=== PATIENT | female | born 1970 | race Caucasian/White ===

== ENCOUNTER 2019-04-24 00:28 | Inpatient (IN) | payer OTHER ==
[~2019-04-24] VITALS: Ht 162.6 cm; Wt 70.1 kg
[2019-04-24 01:05] LABS: BASO # 0.1 10^3/uL (0.0-0.2); BASO % 0.3 % (0.0-1.0); EOS # 0.1 10^3/uL (0.0-0.50); EOS % 0.3 % (0.0-3.0); HEMATOCRIT 40.6 % (36.0-47.0); HEMOGLOBIN 13.4 g/dl (12.0-15.5); LYMPH # 2.5 10^3/uL (1.5-4.5); LYMPH % 14.5 % (24.0-44.0); MEAN CORPUSCULAR HEMOGLOBIN 31.1 pg (27.0-33.0); MEAN CORPUSCULAR VOLUME 94.2 fl (80.0-96.0); MONO # 1.2 10^3/uL (0.0-0.8); NEUTROPHILS # 13.5 10^3/uL (1.8-7.7); NEUTROPHILS % 77.5 % (36.0-66.0); PLATELET COUNT, AUTOMATED 454 10^3/uL (150-450); RED BLOOD COUNT 4.31 10^6/uL (4.00-5.40); WHITE BLOOD COUNT 17.4 10^3/uL (4.0-10.0)
[2019-04-24 01:27] LABS: BLOOD UREA NITROGEN 8 MG/DL (7-18); CALCIUM LEVEL 9.5 MG/DL (8.5-10.1); CARBON DIOXIDE LEVEL 28 MEQ/L (21-32); CHLORIDE LEVEL 103 MEQ/L (98-107); CREATININE FOR GFR 0.71 MG/DL (0.55-1.30); GLOMERULAR FILTRATION RATE > 60.0 (>58); GLUCOSE, FASTING 101 MG/DL (70-100); POTASSIUM SERUM 3.9 MEQ/L (3.5-5.1); SODIUM LEVEL 139 MEQ/L (136-145)
[2019-04-24] MEDS ORDERED: ACETAMINOPHEN 325 MG TAB PO ONE (01:45)
[2019-04-24] MEDS ORDERED: ISOVUE-370 76% 100ML VIAL (Q9967) As Ordered ONE (02:13)
[2019-04-24] MEDS ORDERED: PIPERACILLIN/TAZOBACTAM SOD 3.375 GM in D5W MINI-BAG PLUS 50 ML IV ONE (02:15)
[2019-04-24] MEDS ORDERED: NS 1,000 ML IV ONE (02:15)
--- NOTE | 2019-04-24 04:42 | REPVR ---
EXAM: CT Abdomen and Pelvis With Contrast EXAM DATE/TIME: 04/24/2019 2:05 AM CLINICAL HISTORY: 48 years old, female; Abdominal pain; Localized; Right lower quadrant (rlq); Additional info: Eval post appy infection TECHNIQUE: Imaging protocol: Axial computed tomography images of the abdomen and pelvis with intravenous contrast. Coronal and sagittal reformatted images were created and reviewed. Radiation optimization: All CT scans at this facility use at least one of these dose optimization techniques: automated exposure control; mA and/or kV adjustment per patient size (includes targeted exams where dose is matched to clinical indication); or iterative reconstruction. Contrast material: ISO;Contrast volume: 100 ml;Contrast route: AC; COMPARISON: CT ABD PELVIS WITH CONTRAST 10/28/2015 3:51 PM FINDINGS: LUNG BASES: Mild dependent atelectasis. VASCULAR: Major vasculature is within normal limits. PERITONEAL : No free air. Trace amount of free fluid within the pelvis. This could be physiologic. GI: No hiatal hernia. The stomach contains some fluid and gas. The stomach is not sufficiently distended to evaluate wall thickening or exclude fold thickening. Mild proximal duodenal dilation with fluid. No perigastric or derrek-duodenal inflammatory stranding. Nonspecific fluid and gas-filled loops of small bowel. No asymmetric small bowel dilation to suggest obstruction. Small nonspecific mesenteric lymph nodes. Scattered fecal material and gas within portions of the colon and rectum. The cecum is distended up to 7 cm in diameter. This could be correlated for mild constipation. There is slight wall thickening of the cecum at the ileocecal junction with some nodular appearing soft tissue density extending into the cecal apex (image 34, series 202), possibly postsurgical or related to residual inflammation post appendicitis. Followup colonoscopy or barium enema is advised to exclude any possibility of a cecal lesion. There is minimal soft tissue stranding between the terminal ileum and cecum which may represent residual inflammation. The terminal ileum is not sufficiently distended to evaluate wall thickening. The appendix is not visualized, consistent with removal. No abscess is seen in the right lower quadrant. HEPATOBILIARY, PANCREAS, SPLEEN: Sagittal hepatic length is 17.7 cm. No calcified gallstones or biliary dilation. No pancreatic inflammation. Spleen not enlarged. ADRENALS, KIDNEYS, BLADDER, RETROPERITONEAL: Adrenals within normal limits. No hydronephrosis. Symmetric renal enhancement. No perinephric stranding or fluid. No perivesical stranding. No bladder wall thickening. PELVIC: Anteverted slightly heterogeneous uterus and cervix may be due to physiologic changes. There may be some follicular changes within the ovaries. MUSCULOSKELETAL: There is skin thickening, soft tissue swelling and subcutaneous reticulations involving the right lower quadrant anterior abdominal wall over a diameter of approximately 17 cm. This could be secondary to post surgical change with edema, however cellulitis cannot be excluded. Clinical correlation with time frame of surgery. There is also ill-defined subcutaneous fluid in the abdominal wall measuring 4.8 x 2.7 x 2.9 cm which could be correlated for possibility of phlegmon/developing abscess, versus postsurgical fluid. IMPRESSION: Clinical correlation for possibility of right lower quadrant anterior abdominal wall cellulitis and/or phlegmon as discussed above. Nonspecific gastrointestinal findings and recommendations as discussed above in detail. Trace amount of free fluid within the pelvis. This could be physiologic. Other incidental findings discussed above. Electronically signed by: Pj Soto On 04/24/2019 04:42:52 AM
[2019-04-24] MEDS ORDERED: MAGN400T2 PO (04:59)
[2019-04-24] MEDS ORDERED: MOME50SP2 (04:59)
[2019-04-24] MEDS ORDERED: REST0.05 OU (04:59)
[2019-04-24] MEDS ORDERED: ACETAMINOPHEN TAB 650MG DOSE (2X325MG) PO PRN (05:30)
--- NOTE | 2019-04-24 05:47 | HPEPDOC ---
[facility] Medical History & Physical Date of Admission Apr 24, 2019 Date of Service: Apr 24, 2019 Primary Care Physician: A Other Provider PCP Lorenzo Mohamud Attending Physician: JOANNA BARNES MD History and Physical TIME OF SERVICE 620AM CHIEF COMPLAINT: Abdominal pain HISTORY OF PRESENT ILLNESS: While on vacation in [facility] 15 days ago Ms. Whitaker, a 48-year-old female, developed acute appendicitis and had an open appendectomy. She was given penicillin for 5 days and completed the course of antibiotics, but 3-4 days ago she developed lower abdominal pain associated with redness and swelling, along with subjective fevers and chills. She had discharge from the incision site which improved after completing the antibiotics. REVIEW OF SYSTEMS: 12 point review of systems negative except as listed in HPI PAST MEDICAL/SURGICAL HISTORY: None SOCIAL HISTORY: Negative tobacco. Negative alcohol. Negative recreational drug use Has a daughter who is in college in [place] FAMILY HISTORY: Father has diabetes, hypertension, Cancer ALLERGIES: Please see below. HOME MEDICATIONS: Please see below. PHYSICAL EXAMINATION: VITAL SIGNS: Temperature 99.5, pulse 85, respiratory rate 18, blood pressure 134/65, pulse oximetry 96% on room air GENERAL APPEARANCE: Well-nourished, well-developed, appears stated age, does not appear toxic HEENT: Normocephalic, atraumatic, mucous members moist and pink CARDIOVASCULAR: Regular rate and rhythm. No murmurs, rubs or gallops. Strip is warm and well-perfused LUNGS: Not using accessory muscles. Lungs clear to auscultation bilaterally on room air ABDOMEN: There is an incision at the lower abdomen that is covered in dressings, when the dressings are removed Steri-Strips and a scant mild amount of serosanguineous discharge are visible. There is redness and swelling immediately surrounding the incision site , extending to the left lower abdominal quadrant MUSCULOSKELETAL: Range of motion intact 4 extremities EXTREMITIES: No bilateral lower extremity edema NEUROLOGICAL: Cranial nerves II-12 grossly intact. Speech not dysarthric PSYCHIATRIC: Alert and Oriented to person, place and time, able to understand and follow commands LABORATORY DATA: CBC is markable for platelet count of 454. Chemistries markable for glucose of 101 IMAGING: CT of the abdomen shows "right lower quadrant anterior abdominal wall cellulitis and/or phlegmon" MICROBIOLOGY: Please see below. ASSESSMENT: Ms. Whitaker is a 48 Female with no prior past medical history who will be admitted for management of lower abdominal cellulitis. . PLAN: 1. Lower abdominal wall cellulitis. Status post open appendectomy. Today's postop day #15 She completed a 5 day course of treatment with penicillin She is afebrile and does not have leukocytosis Plan: Admit to general medical floor, follow-up blood cultures, start IV vancomycin antibiotic day #1 and switch to PO clinidamycin when ready for discharge, day time team can determine if General surgery consult is warranted DVT px w SCDs Dispo: pending clinical course Laboratory Data Labs 24H Laboratory Tests 2 04/24/19 00:53: Immature Granulocyte % (Auto) 0.4, White Blood Count 17.4H, Red Blood Count 4.31, Hemoglobin 13.4, Hematocrit 40.6, Mean Corpuscular Volume 94.2, Mean Corpuscular Hemoglobin 31.1, Mean Corpuscular Hemoglobin Concent 33.0, Red Cell Distribution Width 11.4L, Platelet Count 454H, Neutrophils (%) (Auto) 77.5H, Lymphocytes (%) (Auto) 14.5L, Monocytes (%) (Auto) 7.0H, Eosinophils (%) (Auto) 0.3, Basophils (%) (Auto) 0.3, Neutrophils # (Auto) 13.5H, Lymphocytes # (Auto) 2.5, Monocytes # (Auto) 1.2H, Eosinophils # (Auto) 0.1, Basophils # (Auto) 0.1, Nucleated Red Blood Cells % (auto) 0.0, Anion Gap 8, Glomerular Filtration Rate > 60.0, Lactic Acid Level 1.2, Blood Urea Nitrogen 8, Creatinine 0.71, Sodium Level 139, Potassium Level 3.9, Chloride Level 103, Carbon Dioxide Level 28, Ca lcium Level 9.5 CBC/BMP Laboratory Tests 04/24/19 00:53 Red Blood Count 4.31, Mean Corpuscular Volume 94.2, Mean Corpuscular Hemoglobin 31.1, Mean Corpuscular Hemoglobin Concent 33.0, Red Cell Distribution Width 11.4 L, Neutrophils (%) (Auto) 77.5 H, Lymphocytes (%) (Auto) 14.5 L, Monocytes (%) (Auto) 7.0 H, Eosinophils (%) (Auto) 0.3, Basophils (%) (Auto) 0.3, Neutrophils # (Auto) 13.5 H, Lymphocytes # (Auto) 2.5, Monocytes # (Auto) 1.2 H, Eosinophils # (Auto) 0.1, Basophils # (Auto) 0.1, Calcium Level 9.5 Microbiology Microbiology 04/24/19 Blood Culture, Received Pending Home Medications Scheduled Cyclosporine (Restasis) 0.05% [place], 1 DROP OU BID Magnesium Oxide (Magnesium Oxide) 400 Mg Tablet, 400 MG PO DAILY Mometasone Furoate (Mometasone Furoate) 17 Gm [place].pump, 1 SPRAY NA QHS Allergies Coded Allergies: No Known Allergies (Verified , 03/24/03) A-FIB/CHADSVASC A-FIB History Current/History of A-Fib/PAF?: No Current PO Anticoag Therapy: No JOANNA BARNES MD Apr 24, 2019 05:47
[2019-04-24] MEDS ORDERED: VANCOMYCIN HCL 1,000 MG, VIAL MATE ADAPTER 1 EACH in D5W 250 ML IV ONE (06:00)
--- NOTE | 2019-04-24 06:51 | PHACANCOPD ---
PHARMACY VANCOMYCIN DOSING Pt Demographics Demographics Patient Age:48 , Weight:70.450 , Gender: female Adjusted Body Weight Date: 04/24/19, Adjusted Body Weight: [70.5] Kg(ACTUAL WT) Vancomycin Vancomycin indication: ABDOMINAL WALL CELLULITIS Vancomycin Target Ranges: 15-20 mcg/ml Vancomycin Load Y/N: No Load Dose Date Time Vancomycin Load Dose: Date: Time: Vancomycin Dose Date: 04/24/19. Current Vancomycin Dose: [1 GM Q8H] Intermittent Dosing?: No Labs Labs Laboratory Tests 04/24/19 00:53 Red Blood Count 4.31, Mean Corpuscular Volume 94.2, Mean Corpuscular Hemoglobin 31.1, Mean Corpuscular Hemoglobin Concent 33.0, Red Cell Distribution Width 11.4 L, Neutrophils (%) (Auto) 77.5 H, Lymphocytes (%) (Auto) 14.5 L, Monocytes (%) (Auto) 7.0 H, Eosinophils (%) (Auto) 0.3, Basophils (%) (Auto) 0.3, Neutrophils # (Auto) 13.5 H, Lymphocytes # (Auto) 2.5, Monocytes # (Auto) 1.2 H, Eosinophils # (Auto) 0.1, Basophils # (Auto) 0.1, Calcium Level 9.5 Micro Microbiology 04/24/19 Blood Culture, Received Pending Creatinine Clearance Date:04/24/19. Creatinine Clearance: [109].CALCULATED Assessment and Plan Maintaining Current Dose?: Yes Reason for dose change: No Dose Change Pharmacist Note Pharmacist Note Date: 04/24/19. Pharmacist note:48 YOF,ADMITTED W/ABDOMINAL WALL CELL ULITIS,SCR=0.71,WMNV=427(calculated),NKDA.Vancomycin 1 GM in ED @ 0600,then will begin regimen of 1 gram IV Q8H @1000. First trough is scheduled for 04/25@0900.Will continue to follow labs and will adjust dose as needed LYNETTE ZUÑIGA [facility] Apr 24, 2019 06:51
[2019-04-24 08:40] VITALS: BP 134/69
[2019-04-24] MEDS: VANCOMYCIN HCL 1,000 MG, VIAL MATE ADAPTER 1 EACH in D5W 250 ML IV SCH ×2 (10:28→17:31)
[2019-04-24] MEDS: ENOXAPARIN 40 MG/0.4 ML SYRINGE (J1650) SC SCH (10:28)
[2019-04-24 16:00] VITALS: BP 114/59
[2019-04-25 02:00] VITALS: BP 107/64
[2019-04-25] MEDS: VANCOMYCIN HCL 1,000 MG, VIAL MATE ADAPTER 1 EACH in D5W 250 ML IV SCH ×2 (02:27→09:25)
[2019-04-25 08:00] VITALS: BP 98/54
[2019-04-25] MEDS ORDERED: AUGMENTIN 875 MG TAB PO SCH (09:00)
[2019-04-25] MEDS: ENOXAPARIN 40 MG/0.4 ML SYRINGE (J1650) SC SCH (09:25)
[2019-04-25 09:30] LABS: HEMATOCRIT 37.8 % (36.0-47.0); HEMOGLOBIN 12.4 g/dl (12.0-15.5); MEAN CORPUSCULAR HEMOGLOBIN 30.8 pg (27.0-33.0); MEAN CORPUSCULAR HGB CONC 32.8 g/dl (32.0-36.5); PLATELET COUNT, AUTOMATED 431 10^3/uL (150-450); RED BLOOD COUNT 4.02 10^6/uL (4.00-5.40); WHITE BLOOD COUNT 8.8 10^3/uL (4.0-10.0)
[2019-04-25 09:59] LABS: BLOOD UREA NITROGEN 9 MG/DL (7-18); CALCIUM LEVEL 8.8 MG/DL (8.5-10.1); CARBON DIOXIDE LEVEL 29 MEQ/L (21-32); CHLORIDE LEVEL 104 MEQ/L (98-107); CREATININE FOR GFR 0.79 MG/DL (0.55-1.30); GLOMERULAR FILTRATION RATE > 60.0 (>58); GLUCOSE, FASTING 113 MG/DL (70-100); POTASSIUM SERUM 3.5 MEQ/L (3.5-5.1); SODIUM LEVEL 140 MEQ/L (136-145); VANCOMYCIN LEVEL TROUGH 14.9 UG/ML (10.0-20.0)
[2019-04-25] MEDS ORDERED: LIDOCAINE 1% SDV 5 ML VIAL As Ordered ONE (12:16)
[2019-04-25] MEDS ORDERED: AMOX875T2 PO (12:44)
[2019-04-25] MEDS ORDERED: [UNRECOGNIZED DRUG - CODE] XX (12:46)
[2019-04-25] MEDS ORDERED: [UNRECOGNIZED DRUG - CODE] TP (12:46)
[2019-04-25] MEDS ORDERED: IBUP-1022 PO (12:48)
--- NOTE | 2019-04-25 13:30 | IPN ---
DATE OF SERVICE: 04/24/2019 The patient is seen and examined at the bedside. She complains of right lower quadrant tenderness with some induration. She has had no fevers overnight. No nausea, vomiting. She was hypothermic at 96 and continued on IV vancomycin for now. Laboratory data elevated WBC at 17,000. Lactic acid was normal at 1.2. Blood culture is still pending. Imaging study included CT of abdomen and pelvis yesterday which showed anterior abdominal wall cellulitis and/or phlegmon and trace free fluid which could be physiologic, status post appendectomy. Vital Signs: Temperature 98.1, pulse 87, respiratory rate 18, blood pressure 114/59, 99% on room air. Generally, the patient is awake, alert, and oriented times three, answering questions appropriately. She is in no distress. Anicteric sclerae. Lungs are clear to auscultation. No wheezing, rales or rhonchi. HEENT: Pupils equal round and reactive. No cervical lymphadenopathy or thyromegaly. Moist mucous membranes. Abdomen is soft, slightly tender with induration in the right lower quadrant, well bandaged. There is no purulent drainage or serous drainage at the site. Some erythema surrounding the incision. No rebound or guarding. Extremities have no cyanosis, clubbing or any pitting edema. Laboratory data has been reviewed. Microbiology has been reviewed and imaging studies. ASSESSMENT AND PLAN: This is a 48-year-old female who was on vacation in [facility] when she suffered from acute appendicitis requiring appendectomy. She completed a full course of penicillin and was discharged home and returned to [place] and was doing well. After a few days of being home, she noted increasing redness, swelling and pain at the right lower quadrant and currently is admitted for abdominal wall cellulitis, possible phlegmon formation, but no purulence. White count is elevated. She is placed on intravenous vancomycin. Current issues are as follows: 1. Right lower quadrant abdominal wall cellulitis with recent appendectomy in [facility]. She is postoperative day #16, completed penicillin five days in [facility] and was doing well in [place] and now had increasing pain, redness and induration. 2. Deep vein thrombosis (DVT) prophylaxis with compression stockings.
--- NOTE | 2019-04-25 18:13 | CR ---
DATE OF CONSULTATION: 04/25/2019 REASON FOR CONSULTATION: Right lower quadrant abscess. HISTORY OF PRESENT ILLNESS: The patient is a 48-year-old female who was recently on vacation in [facility] and she developed appendicitis. She had an open appendectomy done about 15 days ago. She was given penicillin for 5 days post surgery and [place] After returning to the she drove her daughter back to college in [place], flew back 2 days ago and continued to have some generalized weakness, loss of appetite and some pain in her right lower side so she came into the emergency room yesterday for evaluation. In the ER she had elevated white count, some erythema and pain of the skin over her previous incision site. CT scan shows possible phlegmon in the right lower quadrant. No signs of any intra-abdominal disease. She has been on IV antibiotics for the last 1/2 day. Her white count has already returned back to normal and she is feeling much improved. However, she is still having significant swelling and pain in the right lower side, therefore I was asked to evaluate. She denies any fevers or chills. No nausea or vomiting. No problems with bowel movements. No other prior surgery or trauma to the abdomen. PAST SURGICAL HISTORY: Appendectomy. PAST MEDICAL HISTORY: None. ALLERGIES: None. HOME MEDICATIONS: Please see medication reconciliation. REVIEW OF SYSTEMS: Pertinent positives and negatives as stated in the HPI. SOCIAL HISTORY: Denies drug, alcohol, or tobacco abuse. FAMILY HISTORY: Noncontributory. PHYSICAL EXAMINATION: GENERAL: Alert and oriented times three. No acute distress. VITAL SIGNS: Temperature 97.1, pulse 82, respirations 20, blood pressure 98/54, pulse oximetry 100% room air. HEENT: Pupils equally round and reactive to light and accommodation. HEART: S1, S2, regular rate and rhythm. LUNGS: Clear to auscultation bilaterally. ABDOMEN: Soft, tender to palpation right lower quadrant. The previous incision is all intact. No signs of any drainage from it, however deep to the incision extending medially there is extensive subcutaneous swelling, erythema and induration. LABORATORY DATA: White count was 17.4 on admission down to 8.8, hemoglobin 12.4, platelets 431, potassium 3.5. IMAGING STUDIES: CT abdomen and pelvis shows clinical correlation for possibility of right lower quadrant anterior abdominal wall cellulitis and or phlegmon. There is an ill-defined subcutaneous fluid in the abdominal wall measuring 4.8 x 2.7 x 2.9 cm. Could be correlated possibility of phlegmon versus developing abscess. ASSESSMENT: The patient is a 48-year-old female just over 2 weeks postoperative status post open append[place] outside [place] presenting with what appears to be a right lower quadrant skin abscess. This may have been secondary to an infected seroma or infected hematoma. Recommendation at this time is to proceed with a bedside I and D. Risks and benefits of proceeding not limited to but including bleeding, infection, damage to surrounding structures, need for further surgery were discussed in detail with the patient. Informed consent was obtained and the procedure was completed at the bedside. Now that that is completed she is stable to be discharged home. I have already discussed this with Dr. Elizalde and she is planning to discharge her home this afternoon to continue another week course of by mouth antibiotics. She has my number and will call the office with any questions.
--- NOTE | 2019-04-26 20:15 | RO ---
DATE OF PROCEDURE: 04/25/2019 PREOPERATIVE DIAGNOSIS: Right lower quadrant abdominal wall abscess. POSTOPERATIVE DIAGNOSIS: Right lower quadrant abdominal wall abscess. PROCEDURE: Bedside incision and drainage of right lower quadrant abscess. SURGEON: Dr. Ras Obando SNOW FENCE ERECTOR: None. ANESTHESIA: 4 mL of 1% lidocaine local. COMPLICATIONS: None. INDICATIONS FOR PROCEDURE: Patient is a 48-year-old female, status [place], now presenting with an abdominal wall abscess in the right lower quadrant. Recommendation is to proceed with an incision and drainage (I and D). Risks and benefits of the procedure not limited to but including bleeding, infection, damage to surrounding structures and need for further surgery were discussed in detail with the patient. Informed consent was obtained and procedure was planned. DESCRIPTION OF PROCEDURE: The patient's right lower quadrant was sterilely prepped and draped with some Betadine. Next, 4 mL of 1% lidocaine were injected in the skin and subcutaneous tissue in the medial half of her appendectomy incision. Once that was completed, 11 blade scalpel was used to open up about a centimeter and a half of her previous incision on the medial side. Once that was opened up, I was able to probe it with a cotton-tipped applicator and enter an abscess cavity with some purulent drainage. I was able to expel most of the purulent fluid and then covered the wound with a 4x4 and tape, thus ending procedure. The patient will be discharged home today on oral antibiotics and will call my office with any questions.
--- NOTE | 2019-04-27 21:46 | DSES ---
DATE OF ADMISSION: 04/25/2019 DATE OF DISCHARGE: 04/25/2019 CONSULTATION: General surgery, Dr. Obando PROCEDURE: Incision and drainage of right lower abdominal wall abscess, status post appendectomy in [facility]. DISCHARGE DIAGNOSIS: Right lower quadrant abdominal wall cellulitis and abscess, status post open appendectomy [facility] 3 weeks ago. DISCHARGE MEDICATIONS: - Augmentin 875 by mouth twice a day - ibuprofen 600 every 6 as needed for pain - Restasis one drop both eyes twice a day - magnesium oxide 400 daily - mometasone one spray at bedtime FOLLOWUP INSTRUCTIONS: Followup with primary care physician (PCP) within 5 days of discharge, Dr. Obando within 7 days of discharge. HOSPITAL COURSE: This is a 48-year-old female who was on vacation in [facility] when she suffered from acute appendicitis requiring emergent appendectomy. She was given a full course of penicillin for 5 days. She then was discharged back to the [facility], returned to [place], and was doing well with a well-healed incision. After a few days of being home, she noted increased redness, swelling, and pain in the right lower quadrant, which then spread into the mid abdomen and left side as well and presented to the emergency room here at [facility] with abdominal wall abscess. CT abdomen and pelvis showed no abscess. She was put on intravenous vancomycin with decrease in white count from admission of 17.4 to discharge of 8.8. She remained afebrile throughout the admission. Dr. Obando was consulted for incision and drainage due to severe induration. A 4.8 x 2.7 x 2.9 cm subcutaneous fluid was incised and drained. Could have been a phlegmon versus a developing abscess when cultures were sent, and patient was discharged on Augmentin to complete at home. DISCHARGE LABORATORY DATA: White count 8.8, hemoglobin 12, hematocrit 37, platelet count 431. Sodium 140, potassium 3.5, chloride 104, bicarbonate 29, BUN 9, creatinine 0.79, glucose of 113. Blood cultures negative after [address] abdomen and pelvis: Right lower quadrant anterior abdominal wall cellulitis and/or phlegmon. Nonspecified gastrointestinal (GI) findings. Trace amount of free fluid within the pelvis. TIME SPENT ON DISCHARGE: 30 minutes.
== END 2019-04-25 15:35 | disposition home or self-care (01) | DRG 581 ==
LOC: M ED 00:28 → M ED INP 00:29 → M PED 08:40 → OBSVTOIN 04-25 10:25
PROVIDERS: ADMIT Internal Medicine; ATTEND General Practice
PROC: 0J980ZZ Drainage of Abdomen Subcutaneous Tissue and Fascia, Open Approach (ICD-10-PCS; principal; 2019-04-25)
DX: L02.211 Cutaneous abscess of abdominal wall (principal); L03.311 Cellulitis of abdominal wall; Z79.899 Other long term (current) drug therapy; Z90.49 Acquired absence of other specified parts of digestive tract

== ENCOUNTER 2020-03-28 20:24 | Emergency (ER) | payer OTHER ==
[~2020-03-28] VITALS: Ht 162.6 cm; Wt 74.1 kg
[~2020-03-28 20:24] MED LIST: AMOX875T2 PO; IBUP-1022 PO; MAGN400T2 PO; MOME50SP2; REST0.05 OU; [UNRECOGNIZED DRUG - CODE] TP; [UNRECOGNIZED DRUG - CODE] XX
--- NOTE | 2020-03-28 21:45 | REPVR ---
PROCEDURE INFORMATION: Exam: CT Pelvis Without Contrast; Skeletal Exam date and time: 03/28/2020 9:33 PM Age: 49 years old Clinical indication: Injury or trauma; Fall; Initial encounter; Blunt trauma (contusions or hematomas); Bilateral; Pelvic region; Additional info: Eval for cristy injury TECHNIQUE: Imaging protocol: Computed tomography images of the pelvis without contrast. Exam focused on the skeletal structures. Radiation optimization: All CT scans at this facility use at least one of these dose optimization techniques: automated exposure control; mA and/or kV adjustment per patient size (includes targeted exams where dose is matched to clinical indication); or iterative reconstruction. COMPARISON: CT ABD/PEL W/IV CONTRAST ONLY 04/24/2019 2:23 AM FINDINGS: Appendix: There are no changes of appendicitis. A normal appendix is not seen. Reproductive: Left ovarian cyst measuring 19 x 23 x 23 mm. 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 Bone island is noted in the left femoral head no acute fracture. Soft tissues: Residua of previous right lower quadrant incision through the subcutaneous fat which is much less prominent since the prior study consistent with interval healing. IMPRESSION: 1. There has been some interval healing of a right lower quadrant incision through the subcutaneous fat of the lower right abdominal wall over the pelvis since 04/24/2019. 2. Left ovarian cyst measuring 19 x 23 x 23 mm which is new since the prior study. 3. 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 4. Otherwise negative CT pelvis. No acute fracture. Electronically signed by: Jessee Mohamud On 03/28/2020 21:45:10 PM
--- NOTE | 2020-03-28 21:49 | REPVR ---
PROCEDURE INFORMATION: Exam: CT Chest Without Contrast Exam date and time: 03/28/2020 9:33 PM Age: 49 years old Clinical indication: Injury or trauma; Fall; Initial encounter; Blunt trauma (contusions or hematomas); Additional info: Eval for cristy injury TECHNIQUE: Imaging protocol: Computed tomography of the chest without contrast. 3D rendering: MIP and/or 3D reconstructed images were created by the technologist. Radiation optimization: All CT scans at this facility use at least one of these dose optimization techniques: automated exposure control; mA and/or kV adjustment per patient size (includes targeted exams where dose is matched to clinical indication); or iterative reconstruction. COMPARISON: No relevant prior studies available. FINDINGS: Lungs: Minimal bilateral lower lobe dependent atelectasis. Pleural space: Unremarkable. No pneumothorax. No pleural effusion. Heart: Unremarkable. No cardiomegaly. No pericardial effusion. Aorta: The ascending thoracic aorta measures 28 mm. Lymph nodes: Unremarkable. No enlarged lymph nodes. Bones/joints: Bifid tips of the 3rd ribs anteriorly. No fractures. Soft tissues: Unremarkable. IMPRESSION: Negative CT chest. No acute posttraumatic change is seen. Electronically signed by: Jessee Mohamud On 03/28/2020 21:48:58 PM
[2020-03-28 22:00] VITALS: BP 123/70
[2020-03-28] MEDS ORDERED: NORCO 5/325MG TABLET (BULK FOR ED) PO ONE (22:00)
== END 2020-03-28 22:30 | disposition home or self-care (01) ==
LOC: M ED 20:24
DX: S29.9XXA Unspecified injury of thorax, initial encounter (principal); S79.911A Unspecified injury of right hip, initial encounter; T14.8XXA Other injury of unspecified body region, initial encounter; W10.8XXA Fall (on) (from) other stairs and steps, initial encounter; Y92.018 Other place in single-family (private) house as the place of occurrence of the external cause

== ENCOUNTER → 2022-10-10 | Outpatient (CLI) | payer OTHER ==
[~2022-10-10] MED LIST changes: +MAGN400C PO; +OMEG10002 PO; +PRESCAP PO; +VITA100093 PO; +VITMTA PO; +XIID5DRO OU; +nasonex
== END ==
LOC: M LABSMTC 09:49
PROVIDERS: ATTEND Anesthesiology
DX: Z01.818 Encounter for other preprocedural examination (principal)

== ENCOUNTER → 2022-11-03 | Outpatient (CLI) | payer OTHER ==
[~2022-11-03] MED LIST changes: +PRES10CA2 PO
== END ==
LOC: M LABSMTC 09:17
PROVIDERS: ATTEND Anesthesiology
DX: Z01.812 Encounter for preprocedural laboratory examination (principal); Z11.52 Encounter for screening for COVID-19

== ENCOUNTER 2022-11-08 09:06 | Day surgery (SDC) | payer OTHER ==
[~2022-11-08] VITALS: Ht 162.6 cm; Wt 75.3 kg
[~2022-11-08 09:06] MED LIST changes: +NS 1,000 ML IV ONE
[2022-11-08] MEDS ORDERED: LIDOCAINE 2% 100MG/5ML SDV (FOR ANES.) As Ordered ONE (11:12)
[2022-11-08] MEDS ORDERED: propofoL 200 MG/20 ML VIAL As Ordered ONE (11:12)
[2022-11-08 11:55] VITALS: BP 128/71
== END 2022-11-08 12:07 | disposition home or self-care (01) ==
LOC: M OPP 09:06
PROVIDERS: ATTEND Internal Medicine Gastroenterology
DX: Z12.11 Encounter for screening for malignant neoplasm of colon (principal); Z80.0 Family history of malignant neoplasm of digestive organs; K63.5 Polyp of colon; K64.4 Residual hemorrhoidal skin tags; K64.8 Other hemorrhoids; Z79.899 Other long term (current) drug therapy; Z80.3 Family history of malignant neoplasm of breast; Z80.8 Family history of malignant neoplasm of other organs or systems

== ENCOUNTER → 2024-06-13 | Outpatient (CLI) | payer OTHER ==
[~2024-06-13] MED LIST changes: -NS 1,000 ML IV ONE
[2024-06-13 20:45] LABS: BASO % 0.4 % (0.0-1.0); EOS # 0.1 10^3/uL (0.0-0.5); HEMATOCRIT 43.3 % (36.0-47.0); HEMOGLOBIN 14.4 g/dl (12.0-15.5); LYMPH # 2.5 10^3/uL (1.5-5.0); LYMPH % 25.7 % (24.0-44.0); MEAN CORPUSCULAR HEMOGLOBIN 30.9 pg (27.0-33.0); MEAN CORPUSCULAR HGB CONC 33.3 g/dl (32.0-36.5); MEAN CORPUSCULAR VOLUME 92.9 fl (80.0-96.0); MONO # 0.7 10^3/uL (0.0-0.8); MONO % 7.5 % (2.0-8.0); NEUTROPHILS # 6.4 10^3/uL (1.5-8.5); NEUTROPHILS % 65.1 % (36.0-66.0); PLATELET COUNT, AUTOMATED 371 10^3/uL (150-450); RED BLOOD COUNT 4.66 10^6/uL (4.00-5.40); WHITE BLOOD COUNT 9.8 10^3/uL (4.0-10.0)
[2024-06-13 21:09] LABS: ALBUMIN 3.9 G/DL (3.2-5.2); ALKALINE PHOSPHATASE 97 U/L (46-116); ALT/SGPT 24 U/L (7.0-40); AST/SGOT 17 U/L (<34); BILIRUBIN,TOTAL 0.4 MG/DL (0.3-1.2); BLOOD UREA NITROGEN 17 MG/DL (9-23); CALCIUM LEVEL 9.9 MG/DL (8.5-10.1); CARBON DIOXIDE LEVEL 31 MMOL/L (20-31); CHLORIDE LEVEL 103 MMOL/L (98-107); CHOLESTEROL LEVEL 232 MG/DL (<200); CHOLESTEROL RISK RATIO 3.73 (<5); CREATININE FOR GFR 0.67 MG/DL (0.55-1.30); GLOMERULAR FILTRATION RATE > 60.0 (>51); GLUCOSE, FASTING 80 MG/DL (60-100); HDL CHOLESTEROL 62.1 MG/DL (>40); LDL CHOLESTEROL 146.1 MG/DL (<100); NON-HDL-C 169.9 MG/DL; POTASSIUM SERUM 4.1 MMOL/L (3.5-5.1); SODIUM LEVEL 138 MMOL/L (136-145); TOTAL PROTEIN 7.1 G/DL (5.7-8.2); TRIGLYCERIDES LEVEL 119 MG/DL (<150)
== END ==
LOC: M WUC 15:32
PROVIDERS: ATTEND Internal Medicine
DX: E78.5 Hyperlipidemia, unspecified (principal)